=== PATIENT | male | born 1995 | race African-American/Black ===

== ENCOUNTER 2021-12-18 02:29 | Inpatient (IN) | payer BC ==
[2021-12-18] MEDS ORDERED: Famotidine/PF 20 mg/2ml Vial ONE (02:51)
[2021-12-18] MEDS ORDERED: diphenhydrAMINE 50 MG/ML VIAL ONE (02:51)
[2021-12-18] MEDS ORDERED: methylPREDNISolone Sod Succ/PF 125 MG/2 ML VIAL ONE (02:51)
[2021-12-18 02:57] LABS: #Lymphocytes 0.9 thou/uL (1.20-3.40); #Monocytes 1.2 thou/uL (0.11-0.59); #Neutrophils 17.4 thou/uL (1.40-6.50); %Basophils 0.1 % (0.0-1.0); %Eosinophils 0.1 % (0.0-10.0); %Lymphocytes 4.7 % (21.0-51.0); %Monocytes 6.1 % (0.0-10.0); Hemoglobin 13.6 g/dL (14.0-18.0); Mean Corpuscular HGB CONC 33.6 g/dL (32.0-36.0); Mean Corpuscular Hemoglobin 30.1 pg (27.0-31.0); Mean Corpuscular Volume 89.5 fL (78.0-98.0); Mean Platelet Volume 9.9 fL (7.4-10.4); Platelet Count 206 thou/uL (130-400); RBC Distribution Width 11.6 % (11.5-14.5); Red Blood Cell (RBC) Count 4.52 mill/uL (4.70-6.10); White Blood Cell (WBC) Count 19.5 thou/uL (4.8-10.8)
[2021-12-18] MEDS ORDERED: Lidocaine 2% PF 5 ML VIAL ONE (03:08)
[2021-12-18 03:17] LABS: ALT (SGPT) 12 U/L (8-55); AST (SGOT) 18 U/L (5-34); Alkaline Phosphatase 70 U/L (40-110); Anion Gap 14 mmol/L (10-20); BUN (Urea Nitrogen) 9 mg/dL (8.9-20.6); Calc. Creatinine Clearance 0 mL/min (70-130); Calcium 9.1 mg/dL (7.8-10.44); Carbon Dioxide 22 mmol/L (22-29); Chloride 102 mmol/L (98-107); Estimated GFR 126; Globulin 2.8 g/dL (2.4-3.5); Glucose 144 mg/dL (70-105); Potassium 4.3 mmol/L (3.5-5.1); Protein, Total 6.8 g/dL (6.0-8.3); Sodium 134 mmol/L (136-145)
[2021-12-18] MEDS ORDERED: Morphine 4 MG/ML VIAL SLOW IVP PRN (03:17)
[2021-12-18] MEDS ORDERED: Dextrose 5% in Water 1,000 ML IV PRN (03:17)
[2021-12-18] MEDS ORDERED: Ondansetron PF 4 MG/2 ML Vial IVP PRN (03:17)
[2021-12-18] MEDS ORDERED: Dextrose 50% Abboject 50 ML SYRINGE SLOW IVP PRN (03:17)
[2021-12-18] MEDS ORDERED: Morphine 2 MG/ML VIAL SLOW IVP PRN (03:17)
[2021-12-18] MEDS ORDERED: hydrALAZINE 20 MG/ML VIAL SLOW IVP PRN (03:17)
[2021-12-18] MEDS ORDERED: Ondansetron ODT 4 MG TAB PO PRN (03:17)
[2021-12-18] MEDS ORDERED: Cyclobenzaprine 10 MG TAB PO PRN (03:22)
[2021-12-18] MEDS ORDERED: Morphine 2 MG/ML VIAL ONE (03:34)
[2021-12-18 04:25] LABS: #Lymphocytes 0.9 thou/uL (1.20-3.40); #Monocytes 0.9 thou/uL (0.11-0.59); #Neutrophils 15.2 thou/uL (1.40-6.50); %Eosinophils 0.1 % (0.0-10.0); %Monocytes 5.2 % (0.0-10.0); %Neutrophils 89.7 % (42.0-75.0); Hemoglobin 11.5 g/dL (14.0-18.0); Mean Corpuscular HGB CONC 33.7 g/dL (32.0-36.0); Mean Corpuscular Hemoglobin 30.1 pg (27.0-31.0); Mean Corpuscular Volume 89.3 fL (78.0-98.0); Mean Platelet Volume 9.8 fL (7.4-10.4); Platelet Count 181 thou/uL (130-400); RBC Distribution Width 11.5 % (11.5-14.5); Red Blood Cell (RBC) Count 3.83 mill/uL (4.70-6.10); White Blood Cell (WBC) Count 16.9 thou/uL (4.8-10.8)
[2021-12-18 05:06] LABS: SARS-CoV-2 NAA Rapid Test Not Detected (NotDetected)
[2021-12-18] MEDS: Sodium Chloride 0.9% 1,000 ML IV SCH ×3 (06:20→23:45)
[2021-12-18] MEDS: Ketorolac Tromethamine 30 MG/ML VIAL IVP SCH ×4 (06:21→23:24)
[2021-12-18] MEDS: traMADol HCl 50 MG TAB PO SCH ×4 (06:22→23:25)
[2021-12-18] MEDS: Acetaminophen 500 MG TAB PO SCH ×4 (06:22→23:24)
[2021-12-18] MEDS: Gabapentin 100 MG CAP PO SCH ×3 (06:23→21:46)
[2021-12-18 06:52] VITALS: BMI 17.9
[2021-12-18] MEDS: Famotidine 20 MG TAB PO SCH ×2 (08:54→21:47)
[2021-12-18] MEDS ORDERED: Iopamidol 370 76% 100 ML VIAL ONE (08:54)
[2021-12-18] MEDS: Polyethylene Glycol 3350 17 GM Packet PO SCH (08:56)
[2021-12-18] MEDS: Senokot S 8.6-50 MG TAB PO SCH ×2 (08:56→23:14)
[2021-12-18] MEDS ORDERED: fentaNYL Citrate/PF 100 MCG/2 ML SYRINGE ONE (13:36)
[2021-12-18] MEDS ORDERED: Lidocaine 2% Jelly 5 ML TUBE ONE (13:36)
[2021-12-18] MEDS ORDERED: CEFAZOLIN 2 GM VIAL ONE (13:54)
[2021-12-18] MEDS ORDERED: Sodium Chloride 0.9% 100 ML ONE (13:54)
[2021-12-18] MEDS ORDERED: Ketamine 50 MG/ML (10ML VIAL) ONE (13:55)
[2021-12-18] MEDS ORDERED: Midazolam HCl 2 mg/2 ml Vial ONE (13:55)
[2021-12-18] MEDS ORDERED: CEFAZOLIN 2 GM in Sodium Chloride 0.9% 100 ML IVPB SCH (14:00)
[2021-12-18] MEDS ORDERED: Dexamethasone 20 MG/5 ML VIAL ONE (14:06)
[2021-12-18] MEDS ORDERED: PROPOFOL 200 MG/20 ML VIAL ONE (14:06)
[2021-12-18] MEDS ORDERED: Lidocaine 1% MPF 2 ML VIAL ONE (14:06)
[2021-12-18] MEDS ORDERED: Ondansetron PF 4 MG/2 ML Vial ONE (14:06)
[2021-12-18] MEDS ORDERED: Esmolol 100 MG/10 ML VIAL ONE (14:06)
[2021-12-18] MEDS ORDERED: Meperidine HCl/PF 25 MG/ML VIAL SLOW IVP PRN (15:37)
[2021-12-18] MEDS ORDERED: Ondansetron HCl/PF 4 MG/2 ML Vial IVP PRN (15:37)
[2021-12-18] MEDS ORDERED: Promethazine HCl 25 MG/ML VIAL IM PRN (15:37)
[2021-12-18] MEDS ORDERED: Promethazine HCl 25 MG/ML VIAL IVPB PRN (15:37)
[2021-12-18] MEDS ORDERED: HYDROmorphone 2 MG/ML VIAL SLOW IVP PRN (15:37)
[2021-12-18] MEDS ORDERED: Morphine Sulfate 2 MG/ML SYRINGE SLOW IVP PRN (15:37)
[2021-12-18] MEDS ORDERED: Meperidine HCl/PF 25 MG/ML VIAL ONE (15:42)
[2021-12-18] MEDS: CEFAZOLIN 2 GM in Sodium Chloride 0.9% 100 ML IVPB SCH (21:47)
[2021-12-19] MEDS: CEFAZOLIN 2 GM in Sodium Chloride 0.9% 100 ML IVPB SCH (05:18)
[2021-12-19] MEDS: Ketorolac Tromethamine 30 MG/ML VIAL IVP SCH ×2 (05:19→11:29)
[2021-12-19] MEDS: Acetaminophen 500 MG TAB PO SCH ×3 (05:20→17:51)
[2021-12-19] MEDS: traMADol HCl 50 MG TAB PO SCH ×3 (05:21→17:50)
[2021-12-19] MEDS: Gabapentin 100 MG CAP PO SCH ×3 (05:22→20:04)
[2021-12-19 05:48] LABS: #Basophils 0.1 thou/uL (0.0-0.2); #Lymphocytes 1.2 thou/uL (1.20-3.40); #Monocytes 1.4 thou/uL (0.11-0.59); #Neutrophils 11.9 thou/uL (1.40-6.50); %Basophils 0.9 % (0.0-1.0); %Eosinophils 0.2 % (0.0-10.0); %Lymphocytes 7.9 % (21.0-51.0); %Monocytes 9.3 % (0.0-10.0); %Neutrophils 81.7 % (42.0-75.0); Hemoglobin 8.9 g/dL (14.0-18.0); Mean Corpuscular HGB CONC 34.4 g/dL (32.0-36.0); Mean Corpuscular Hemoglobin 31.4 pg (27.0-31.0); Mean Corpuscular Volume 91.1 fL (78.0-98.0); Platelet Count 176 thou/uL (130-400); RBC Distribution Width 11.9 % (11.5-14.5); Red Blood Cell (RBC) Count 2.84 mill/uL (4.70-6.10); White Blood Cell (WBC) Count 14.6 thou/uL (4.8-10.8)
[2021-12-19] MEDS: Senokot S 8.6-50 MG TAB PO SCH ×2 (09:34→20:06)
[2021-12-19] MEDS: Ascorbic Acid 500 mg Chewable Tablet PO SCH ×2 (09:35→20:04)
[2021-12-19] MEDS: Famotidine 20 MG TAB PO SCH ×2 (09:35→20:04)
[2021-12-19] MEDS: Polyethylene Glycol 3350 17 GM Packet PO SCH (09:35)
[2021-12-19 16:02] LABS: #Monocytes 1.6 thou/uL (0.11-0.59); #Neutrophils 8.5 thou/uL (1.40-6.50); %Lymphocytes 16.7 % (21.0-51.0); %Monocytes 13.3 % (0.0-10.0); Hemoglobin 7.4 g/dL (14.0-18.0); Mean Corpuscular HGB CONC 34.8 g/dL (32.0-36.0); Mean Corpuscular Hemoglobin 31.2 pg (27.0-31.0); Mean Corpuscular Volume 89.7 fL (78.0-98.0); Mean Platelet Volume 9.3 fL (7.4-10.4); Platelet Count 147 thou/uL (130-400); RBC Distribution Width 11.8 % (11.5-14.5); Red Blood Cell (RBC) Count 2.37 mill/uL (4.70-6.10); White Blood Cell (WBC) Count 12.2 thou/uL (4.8-10.8)
[2021-12-19] MEDS: Ferrous Sulfate 325 MG TAB PO SCH (17:49)
[2021-12-20] MEDS: Acetaminophen 500 MG TAB PO SCH ×3 (00:05→12:37)
[2021-12-20] MEDS: traMADol HCl 50 MG TAB PO SCH ×3 (00:06→12:38)
[2021-12-20] MEDS: Gabapentin 100 MG CAP PO SCH ×2 (05:36→15:29)
[2021-12-20 06:34] LABS: #Eosinphils 0.1 thou/uL (0.0-0.7); #Lymphocytes 2.2 thou/uL (1.20-3.40); #Monocytes 1.1 thou/uL (0.11-0.59); #Neutrophils 4.6 thou/uL (1.40-6.50); %Basophils 0.1 % (0.0-1.0); %Eosinophils 0.6 % (0.0-10.0); %Lymphocytes 27.7 % (21.0-51.0); %Monocytes 13.4 % (0.0-10.0); %Neutrophils 58.1 % (42.0-75.0); Hemoglobin 6.7 g/dL (14.0-18.0); Mean Corpuscular Hemoglobin 30.7 pg (27.0-31.0); Mean Corpuscular Volume 90.3 fL (78.0-98.0); Mean Platelet Volume 9.9 fL (7.4-10.4); Platelet Count 137 thou/uL (130-400); RBC Distribution Width 11.9 % (11.5-14.5); Red Blood Cell (RBC) Count 2.17 mill/uL (4.70-6.10); White Blood Cell (WBC) Count 7.9 thou/uL (4.8-10.8)
[2021-12-20] MEDS: Famotidine 20 MG TAB PO SCH ×2 (08:16)
[2021-12-20] MEDS: Ferrous Sulfate 325 MG TAB PO SCH (08:16)
[2021-12-20] MEDS: Polyethylene Glycol 3350 17 GM Packet PO SCH (08:18)
[2021-12-20] MEDS: Senokot S 8.6-50 MG TAB PO SCH (08:18)
[2021-12-20] MEDS: Ascorbic Acid 500 mg Chewable Tablet PO SCH (08:18)
[2021-12-20 17:01] VITALS: BP 99/64; TEMP 97.8
== END 2021-12-20 16:40 | disposition home or self-care (01) | DRG 481 ==
LOC: ERS 02:29 → SJJU 05:43
PROVIDERS: ADMIT Specialist; ATTEND Specialist
PROC: 0QSC06Z Reposition Left Lower Femur with Intramedullary Internal Fixation Device, Open Approach (ICD-10-PCS; principal; 2021-12-18)
PROC: 0XQJ0ZZ Repair Right Hand, Open Approach (ICD-10-PCS; 2021-12-18)
PROC: 30233N1 Transfusion of Nonautologous Red Blood Cells into Peripheral Vein, Percutaneous Approach (ICD-10-PCS; 2021-12-18)
DX: S72.492B Other fracture of lower end of left femur, initial encounter for open fracture type I or II (principal); D62 Acute posthemorrhagic anemia; Z20.822 Contact with and (suspected) exposure to COVID-19; S61.431A Puncture wound without foreign body of right hand, initial encounter; S81.832A Puncture wound without foreign body, left lower leg, initial encounter; X95.9XXA Assault by unspecified firearm discharge, initial encounter
CPT/HCPCS: 36415; 36430; 71045; 75635; 76000; 80053; 85025; 86850; 86900; 86901; C1713; G0390; J0690; J1100; J1200; J1885; J2001; J2175; J2250; J2270; J2405; J2704; J2930; J3490; J7050; P9016; Q9967; S0028; U0002